=== PATIENT | female | born 1960 | race African-American/Black ===

== ENCOUNTER 2018-10-11 12:48 | Emergency (ER) | payer MEDICARE, MEDICAID ==
[~2018-10-11] VITALS: Ht 165.1 cm; Wt 59.0 kg
[~2018-10-11 12:48] MED LIST: [UNRECOGNIZED DRUG - REMARK]
[2018-10-11] MEDS ORDERED: IBUPROFEN 800MG TABLET PO ONE (14:30)
[2018-10-11 14:51] VITALS: BP 105/68
== END 2018-10-11 14:55 | disposition home or self-care (01) ==
LOC: ER 13:38
DX: G89.29 Other chronic pain (principal); M54.5 Low back pain; F41.9 Anxiety disorder, unspecified; F32.9 Major depressive disorder, single episode, unspecified; F20.9 Schizophrenia, unspecified; F43.10 Post-traumatic stress disorder, unspecified; F17.200 Nicotine dependence, unspecified, uncomplicated; Z98.890 Other specified postprocedural states
CPT/HCPCS: 99282